=== PATIENT | male | born 1950 | race Caucasian/White ===

== ENCOUNTER 2018-05-18 14:27 | Emergency (ER) | payer MEDICARE, SELFPAY ==
[2018-05-18 14:29] VITALS: BP 171/87; PULSE 76; RESP 20; TEMP 36.2; O2SAT 98; BMI 29.9
--- NOTE | 2018-05-18 14:35 | ED_ITS ---
HPI - Abdominal Pain General Chief Complaint: Abdominal Pain Stated Complaint: abd pain Time Seen by Provider: 05/18/18 14:35 Source: patient Mode of arrival: ambulatory Limitations: no limitations History of Present Illness HPI narrative: 68-year-old male here for evaluation of right-sided abdominal pain. He states that has been going on for the past several days it has been worsening during that time. Does have a history of ulcerative colitis however he states this is different from that type of pain. No blood in the stool. His last bowel movement was yesterday. States that his bowel movements do not change his symptoms at all. No urinary symptoms. He does have a history of kidney stones but this feels different. Some nausea but no vomiting. Had a hernia surgery as a small child but no other abdominal surgeries since then. Related Data Home Medications Medication Instructions Recorded Confirmed aspirin [Aspir-81] 81 mg PO DAILY 05/18/18 05/18/18 carvedilol 6.25 mg PO BID 05/18/18 05/18/18 clopidogrel 75 mg PO DAILY 05/18/18 05/18/18 lisinopril 10 mg PO BID 05/18/18 05/18/18 nitroglycerin 0.4 mg SUBLINGUAL Q5-15M PRN 05/18/18 05/18/18 omeprazole 20 mg PO BID 05/18/18 05/18/18 simvastatin 80 mg PO QPM 05/18/18 05/18/18 Previous Rx's Medication Instructions Recorded hydrocodone-acetaminophen [[place]] 1 tab PO Q4-6H PRN #10 tab 05/18/18 levofloxacin [Levaquin] 750 mg PO DAILY 7 Days #7 tab 05/18/18 metronidazole [Flagyl] 500 mg PO BID 7 Days #14 tab 05/18/18 ondansetron 4 mg PO Q6-8H PRN #10 tab 05/18/18 Allergies Allergy/AdvReac Type Severity Reaction Status Date / Time No Known Drug Allergies Allergy Verified 05/18/18 15:50 Review of Systems Constitutional Denies fever(s) Cardiovascular Denies chest pain and Denies dyspnea Respiratory Denies dyspnea Gastrointestinal Gastrointestinal: Reports abdominal pain, Denies melena, Denies change in bowel habits, Denies coffee ground emesis, Denies diarrhea, Reports nausea and Denies vomiting Genitourinary Denies dysuria Musculoskeletal Denies myalgias and Denies arthralgias Integumentary/Breasts Denies lesions and Denies rash Neurologic Denies behavioral changes Psychiatric Denies behavioral changes Hematologic/Lymphatic Comments: Not on anticoagulation PFSH Medical History Coronary artery disease (Acute) Kidney stones (Acute) Ulcerative colitis (Acute) Surgical History H/O hernia repair (Acute) Social History Smoking Status: Former smoker Exam Initial Vital Signs Initial Vital Signs: Vital Signs Temperature 97.2 F L 05/18/18 14:29 Pulse Rate 76 05/18/18 14:29 Respiratory Rate 20 05/18/18 14:29 Blood Pressure 171/87 H 05/18/18 14:29 Pulse Oximetry 98 05/18/18 14:29 Const General: cooperative, comfortable, well developed, well groomed and No acute distress Orientation: alert, awake and oriented x3 HENMT Head: normal to inspection and normocephalic Resp Effort & Inspection: normal respiratory effort Auscultation: clear to auscultation bilaterally Cardio Rate: regular rate Rhythm: regular rhythm Pulses: radial pulses present GI Inspection: non-distended Palpation: soft, No firm and tender (Right-sided abdominal tenderness with mild guarding) Back/Spine/Pelvis Back: No CVA tenderness Skin Lesions: lesions noted Rashes: rash noted Neuro General: alert, awake and oriented x3 Extrem General: normal to inspection and capillary refill normal Psych Appearance: grossly normal and well kempt Course Orders Ordered: ED Orders 05/18/18 14:45 Complete Blood Count AUTO DIFF Stat 05/18/18 15:03 Lactate (Lactic Acid) Stat 05/18/18 15:08 CT abdomen pelvis w con Stat 05/18/18 15:25 Comprehensive Metabolic Panel Stat Lipase Stat 05/18/18 16:28 US abdomen complete Stat Discontinued Medications Sodium Chloride (Normal Saline 0.9%) 1,000 mls @ 1,000 mls/hr IV BOLUS ONE Stop: 05/18/18 16:07 Last Infusion: 05/18/18 17:16 Dose: 0 mls/hr Admin: 05/18/18 15:17 Dose: 1,000 mls/hr Vital Signs - 8 hr 05/18/18 14:29 05/18/18 14:48 05/18/18 17:24 Temperature 97.2 F L Pulse Rate 76 76 70 Respiratory Rate 20 20 16 Blood Pressure 171/87 H Blood Pressure [Left Arm] 193/84 H 165/69 H Pulse Oximetry 98 98 96 05/18/18 18:30 05/18/18 19:55 Temperature Pulse Rate 66 67 Respiratory Rate 16 Blood Pressure Blood Pressure [Left Arm] 170/76 H 157/74 H Pulse Oximetry 95 96 MDM - Abdominal Pain Lab Data Attestation: I reviewed the patient's lab results. Result diagrams: 05/18/18 14:45 05/18/18 15:25 Lab Results 05/18/18 05/18/18 05/18/18 Range/Units 14:45 15:03 15:25 WBC 9.3 (4.5-11.0) X10^3/uL RBC 3.97 L (4.5-5.9) X10^6/uL Hgb 14.7 (13.5-17.5) g/dL Hct 42.0 (41-53) % MCV 105.6 H (80-100) fL MCH 36.9 H (26-34) PG MCHC 34.9 (30-36) % RDW 14.9 H (11.6-14.8) % Plt Count 112 L (150-400) X10^3/uL Neut % (Auto) 70.7 (50-75) % Lymph % (Auto) 16.2 L (25-40) % [place] % (Auto) 8.8 (3-14) % Eos % (Auto) 3.7 (2-4) % Baso % (Auto) 0.6 (0-2) % Neut # (Auto) 6600 (6124-3800) /uL Lymph # (Auto) 1500 (2464-1513) /uL [place] # (Auto) 800 (0-900) /uL Eos # (Auto) 300 (0-450) /uL Baso # (Auto) 100 (0-100) /uL Sodium 136 L (137-145) mmol/L Potassium 4.1 (3.4-5.1) mmol/L Chloride 102 (98-107) mmol/L Carbon Dioxide 24 (22-32) mmol/L BUN 16 (9-20) mg/dL Creatinine 0.60 L (0.66-1.25) mg/dL Estimated GFR > 60.0 (>60) mL/min BUN/Creatinine Ratio 26.7 H (6-22) Glucose 80 (80-110) mg/dL Lactate 0.7 (0.7-2.1) mmol/L Calcium 9.1 (8.4-10.2) mg/dL Total Bilirubin 0.7 (0.2-1.3) mg/dL AST 89 H (17-59) IU/L ALT 72 (21-72) IU/L Alkaline Phosphatase 140 H (38-126) U/L Total Protein 7.5 (6.3-8.2) g/dL Albumin 4.3 (3.5-5.0) g/dL Globulin 3.2 (1.7-4.1) g/dL Albumin/Globulin Ratio 1.3 (1.0-2.8) Lipase 72 (23-300) U/L Point of care testing: Urine Dip Bedside Urine Glucose Negative Bedside Urine Bilirubin - Negative Bedside Urine Ketone - Negative Urine Specific [place] 1.030 Bedside Urine Occult Blood - Negative Bedside Urine pH 6.0 Bedside Urine Protein - Negative Bedside Urine Urobilinogen - Negative Bedside Urine Nitrite - Negative Bedside Urine Leukocytes - Negative Esterase Imaging Data CT scan - abdomen: Radiologist's impression: [place] [address] CT Scan Report Signed Patient: Vlaentin Solitario JMR#: [id number] : [id number]:[id number] Age/Sex: 68 / MDate of Service: 05/18/18 Loc: ED Accession Number: [id number] Procedure: CT abdomen pelvis w con Ordering Provider: Thierry Vega D.O. PROCEDURE: CT ABDOMEN PELVIS W CON INDICATIONS: Right-sided abdominal pain TECHNIQUE: After the administration of intravenous contrast, 5 mm thick sections acquired from the diaphragm to the symphysis. 5 mm coronal and sagittal reformats were acquired. For radiation dose reduction, the following was used: automated exposure control, adjustment of mA and/or kV according to patient size. COMPARISON: [facility], CT, CT-IVP, 03/08/2007, 9:49. FINDINGS: Image quality: Excellent. ABDOMEN: Lung bases: Scarring within the right anterior lung base. Lung bases are otherwise clear. Heart size is normal. Solid organs: Liver is enlarged and demonstrates diffusely decreased density, indicating fatty infiltration. Hepatic contour is nodular. Gallbladder is contracted and demonstrates calculi within its lumen. Biliary system is non dilated. Pancreas enhances normally. Spleen is normal in size and enhancement. No adrenal nodules. Kidneys demonstrate normal size and enhancement, without hydronephrosis. Peritoneum and bowel: Stomach is nondistended. Multiple mildly distended and fecalized small bowel loops are present. Terminal ileum is mildly thickened. There is fatty hypertrophy of the cecal joshua. Colon is nondistended. Appendix is normal. No free fluid or air. Nodes and vessels: No retroperitoneal or mesenteric adenopathy by size criteria. IVC is normal in caliber. There is a distal infrarenal abdominal aortic aneurysm measuring 43 mm short axis. Bilateral common iliac artery aneurysms are present, measuring 19 mm on the right, and 22 mm on the left. Mildly prominent recanalized umbilical vein is present. Small caliber portosystemic venous collaterals are present. Miscellaneous: No ventral hernias. PELVIS: Genitourinary: Bladder wall thickness is normal. Miscellaneous: No inguinal hernias or adenopathy. Bones: No suspicious bony lesions. No vertebral body compression fractures. IMPRESSION: 1. No acute process. 2. Cirrhosis and portal hypertension. 3. Aortoiliac aneurysms. 4. Fatty hypertrophy of the cecal wall, suggestive of chronic inflammation. 5. Mildly distended and fecalized small bowel loops, suggestive of chronic ileus /partial obstruction. Additionally, there is thickening of the terminal ileum. Findings could indicate inflammatory bowel disease of disease i.e., Crohn's disease). 6. Normal appendix. Dictated by: Dominga Woodruff M.D. on 05/18/2018 at 16:08 US - abdomen: Radiologist's impression: PROCEDURE: US ABDOMEN COMPLETE INDICATIONS: Eval for GB and AAA TECHNIQUE: Real-time scanning was performed of the abdominal and retroperitoneal organs, with image documentation. COMPARISON: [facility], CT, CT ABDOMEN PELVIS W CON, 05/18/2018, 15:49. FINDINGS: Liver: Liver is normal in size and demonstrates diffusely echotexture. Gallbladder: There are gallstones. Pulmonary semicontracted. There is gall bladder wall thickening measuring 5 mm. No pericholecystic fluid or sonographic Wright sign. Biliary ducts: Intrahepatic bile ducts are non-dilated. Extrahepatic bile duct caliber measures 5 mm. Normal is 6-7 mm or less in diameter, or 10 mm or less post-cholecystectomy. Pancreas: Obscured by overlying bowel gas. Spleen: Spleen is enlarged measuring 14.7 cm. Kidneys: Kidneys are normal in size and echotexture. Right kidney measures 11.3 cm long; left kidney measures 12.1 cm long. No hydronephrosis or nephrolithiasis. No solid masses. Aorta: Obscured by overlying bowel gas. Iliacs: Proximal common iliac arteries are obscured by overlying bowel gas. IVC: Intrahepatic inferior vena cava is markedly dressed. Miscellaneous: No free abdominal fluid. IMPRESSION: 1. Cholelithiasis. There is gallbladder wall thickening suspicious for acute cholecystitis. 2. Diffusely increased hepatic echotexture. This finding is most likely secondary to hepatic fatty infiltration although other hepatocellular disease may have a similar appearance. Recommend clinical correlation. 3. Splenomegaly. 4. Aorta is not visualized. Cannot evaluate abdominal aortic aneurysm. 5. Pancreas, , iliac arteries and IVC are not visualized. Dictated by: Dunia Martinez M.D. on 05/18/2018 at 17:58 Approved by: Dunia Martinez M.D. on 05/18/2018 at 18:01 [facility] Narrative Medical decision making narrative: Patient does have a relatively benign abdominal exam. CT scan does show some abnormalities as well as the right upper quadrant ultrasound. I discussed the case with Dr. Montoya with General surgery who states that he would probably be better off evaluated by a tertiary care facility given his other comorbidities. I discussed the case with GIBRAN Rodriguez with [facility] who stated that because he is on Plavix they would not operate on him for the next 7 days. She recommended stopping the Plavix starting him on antibiotics and having the patient be followed up as an outpatient. She also discussed this with the attending surgeon who agrees. I contacted Dr. Zhong who is the on-call physician for the patient's cardiology group who stated that the patient can stop the Plavix. Will send home with Levaquin and Flagyl and also nausea and pain medication. The patient was given the phone numbers for follow-up. He is instructed that on Monday he needed to contact his primary doctor. He is given return precautions. He expressed understanding and agreement with plan. Discharge Plan Departure Patient Disposition: Home Clinical Impression: Cholelithiasis, Cirrhosis, Abdominal aortic aneurysm Instructions: Aortic Aneurysm, DI for Gallstones Activity Restrictions/Additional Instructions: Take the antibiotics as directed. Use the nausea medication and pain medication as needed. On Monday you need to talk with your primary care doctor regarding your presenting symptoms today. You also need to discuss with him the other findings to include the cirrhosis and also the abdominal aortic aneurysm. Also on Monday the surgery group at [facility] would like you to call Dr. Cardoso at [phone]. Before then if your symptoms worsen or change please return to the emergency department. Also stop your Plavix/ clopidogrel in preparation for surgery. Prescriptions: New hydrocodone-acetaminophen [[place]] 5-325 mg tablet 1 tab PO Q4-6H PRN (Reason: pain) Qty: 10 RF: 0 metronidazole [Flagyl] 500 mg tablet 500 mg PO BID 7 Days Qty: 14 RF: 0 levofloxacin [Levaquin] 750 mg tablet 750 mg PO DAILY 7 Days Qty: 7 RF: 0 ondansetron 4 mg tablet,disintegrating 4 mg PO Q6-8H PRN (Reason: nausea and vomiting) Qty: 10 RF: 0 No Action simvastatin 80 mg Tablet 80 mg PO QPM RF: 0 lisinopril 10 mg Tablet 10 mg PO BID RF: 0 clopidogrel 75 mg Tablet 75 mg PO DAILY RF: 0 carvedilol 6.25 mg Tablet 6.25 mg PO BID RF: 0 omeprazole 20 mg Capsule,Delayed Release(Dr/Ec) 20 mg PO BID RF: 0 nitroglycerin 0.4 mg Tablet, Sublingual 0.4 mg SUBLINGUAL Q5-15M PRN (Reason: Chest Pain) RF: 0 aspirin [Aspir-81] 81 mg Tablet,Delayed Release (Dr/Ec) 81 mg PO DAILY RF: 0
[2018-05-18 14:48] VITALS: BP 193/84; PULSE 76; RESP 20; O2SAT 98
[2018-05-18 14:55] LABS: Add Manual Diff / Slide Review NO; Basophils Absolute Auto 100 /uL (0-100); Basophils Percent Auto 0.6 % (0-2); Eosinophils Absolute Auto 300 /uL (0-450); Eosinophils Percent Auto 3.7 % (2-4); Hemoglobin 14.7 g/dL (13.5-17.5); Lymphocytes Absolute Auto 1500 /uL (1100-4500); Lymphocytes Percent Auto 16.2 % (25-40); Mean Corpuscular HGB Conc 34.9 % (30-36); Mean Corpuscular Hemoglobin 36.9 PG (26-34); Mean Corpuscular Volume 105.6 fL (80-100); Monocytes Absolute Auto 800 /uL (0-900); Monocytes Percent Auto 8.8 % (3-14); Neutrophils Absolute Auto 6600 /uL (1500-7000); Neutrophils Percent Auto 70.7 % (50-75); Platelet Count 112 X10^3/uL (150-400); Red Blood Cell Count 3.97 X10^6/uL (4.5-5.9); Red Cell Distribution Width 14.9 % (11.6-14.8); White Blood Cell Count 9.3 X10^3/uL (4.5-11.0)
--- NOTE | 2018-05-18 15:08 | DI.CT.S_ITS ---
PROCEDURE: CT ABDOMEN PELVIS W CON INDICATIONS: Right-sided abdominal pain TECHNIQUE: After the administration of intravenous contrast, 5 mm thick sections acquired from the diaphragm to the symphysis. 5 mm coronal and sagittal reformats were acquired. For radiation dose reduction, the following was used: automated exposure control, adjustment of mA and/or kV according to patient size. COMPARISON: [facility], CT, CT-IVP, 03/08/2007, 9:49. FINDINGS: Image quality: Excellent. ABDOMEN: Lung bases: Scarring within the right anterior lung base. Lung bases are otherwise clear. Heart size is normal. Solid organs: Liver is enlarged and demonstrates diffusely decreased density, indicating fatty infiltration. Hepatic contour is nodular. Gallbladder is contracted and demonstrates calculi within its lumen. Biliary system is non dilated. Pancreas enhances normally. Spleen is normal in size and enhancement. No adrenal nodules. Kidneys demonstrate normal size and enhancement, without hydronephrosis. Peritoneum and bowel: Stomach is nondistended. Multiple mildly distended and fecalized small bowel loops are present. Terminal ileum is mildly thickened. There is fatty hypertrophy of the cecal joshua. Colon is nondistended. Appendix is normal. No free fluid or air. Nodes and vessels: No retroperitoneal or mesenteric adenopathy by size criteria. IVC is normal in caliber. There is a distal infrarenal abdominal aortic aneurysm measuring 43 mm short axis. Bilateral common iliac artery aneurysms are present, measuring 19 mm on the right, and 22 mm on the left. Mildly prominent recanalized umbilical vein is present. Small caliber portosystemic venous collaterals are present. Miscellaneous: No ventral hernias. PELVIS: Genitourinary: Bladder wall thickness is normal. Miscellaneous: No inguinal hernias or adenopathy. Bones: No suspicious bony lesions. No vertebral body compression fractures. IMPRESSION: 1. No acute process. 2. Cirrhosis and portal hypertension. 3. Aortoiliac aneurysms. 4. Fatty hypertrophy of the cecal wall, suggestive of chronic inflammation. 5. Mildly distended and fecalized small bowel loops, suggestive of chronic ileus/partial obstruction. Additionally, there is thickening of the terminal ileum. Findings could indicate inflammatory bowel disease of disease i.e., Crohn's disease). 6. Normal appendix. Dictated by: Dominga Woodruff M.D. on 05/18/2018 at 16:08 Approved by: Dominga Woodruff M.D. on 05/18/2018 at 16:15
[2018-05-18] MEDS: SODIUM CHLORIDE 0.9% 1,000 ML 1000 ML IV (15:17)
[2018-05-18 15:35] LABS: Lactate (Lactic Acid) 0.7 mmol/L (0.7-2.1)
[2018-05-18 15:48] LABS: Alanine Aminotransferase 72 IU/L (21-72); Albumin 4.3 g/dL (3.5-5.0); Albumin Globulin Ratio 1.3 (1.0-2.8); Alkaline Phosphatase 140 U/L (38-126); Aspartate Aminotransferase 89 IU/L (17-59); BUN Creatinine Ratio 26.7 (6-22); Bilirubin Total 0.7 mg/dL (0.2-1.3); Blood Urea Nitrogen 16 mg/dL (9-20); Calcium 9.1 mg/dL (8.4-10.2); Carbon Dioxide 24 mmol/L (22-32); Chloride 102 mmol/L (98-107); Estimated Glomerular Filt Rate > 60.0 mL/min (>60); Globulin 3.2 g/dL (1.7-4.1); Glucose 80 mg/dL (80-110); HEMOLYSIS < 15 (0-50); Lipase 72 U/L (23-300); Potassium 4.1 mmol/L (3.4-5.1); Sodium 136 mmol/L (137-145); Total Protein 7.5 g/dL (6.3-8.2)
--- NOTE | 2018-05-18 16:28 | DI.US.S_ITS ---
PROCEDURE: US ABDOMEN COMPLETE INDICATIONS: Eval for GB and AAA TECHNIQUE: Real-time scanning was performed of the abdominal and retroperitoneal organs, with image documentation. COMPARISON: [facility], CT, CT ABDOMEN PELVIS W CON, 05/18/2018, 15:49. FINDINGS: Liver: Liver is normal in size and demonstrates diffusely echotexture. Gallbladder: There are gallstones. Pulmonary semicontracted. There is gall bladder wall thickening measuring 5 mm. No pericholecystic fluid or sonographic Wright sign. Biliary ducts: Intrahepatic bile ducts are non-dilated. Extrahepatic bile duct caliber measures 5 mm. Normal is 6-7 mm or less in diameter, or 10 mm or less post-cholecystectomy. Pancreas: Obscured by overlying bowel gas. Spleen: Spleen is enlarged measuring 14.7 cm. Kidneys: Kidneys are normal in size and echotexture. Right kidney measures 11.3 cm long; left kidney measures 12.1 cm long. No hydronephrosis or nephrolithiasis. No solid masses. Aorta: Obscured by overlying bowel gas. Iliacs: Proximal common iliac arteries are obscured by overlying bowel gas. IVC: Intrahepatic inferior vena cava is markedly dressed. Miscellaneous: No free abdominal fluid. IMPRESSION: 1. Cholelithiasis. There is gallbladder wall thickening suspicious for acute cholecystitis. 2. Diffusely increased hepatic echotexture. This finding is most likely secondary to hepatic fatty infiltration although other hepatocellular disease may have a similar appearance. Recommend clinical correlation. 3. Splenomegaly. 4. Aorta is not visualized. Cannot evaluate abdominal aortic aneurysm. 5. Pancreas, , iliac arteries and IVC are not visualized. Dictated by: Dunia Martinez M.D. on 05/18/2018 at 17:58 Approved by: Dunia Martinez M.D. on 05/18/2018 at 18:01
[2018-05-18 17:24] VITALS: BP 165/69; PULSE 70; RESP 16; O2SAT 96
[2018-05-18 18:30] VITALS: BP 170/76; PULSE 66; O2SAT 95
[2018-05-18 19:55] VITALS: BP 157/74; PULSE 67; RESP 16; O2SAT 96
--- NOTE | 2018-05-21 10:21 | PC.NURSE ---
pt called because apparetnly he called dr. brewster office and they told him no surgery yet to get all the paperwork in order then will call for appt...pt was upset, i called dr. brewster office and they explained they spoke with him with instructions. will call pt and let him know of plans
== END 2018-05-18 20:22 | disposition home or self-care (01) ==
PROVIDERS: Emergency Provider Emergency Medicine; PCP Family Medicine
DX: K80.20 Calculus of gallbladder without cholecystitis without obstruction (principal); K74.60 Unspecified cirrhosis of liver; I71.4 Abdominal aortic aneurysm, without rupture
CPT/HCPCS: 36415; 36591; 74177; 76700; 80053; 81003; 83605; 83690; 85025; 96360; 96361; 99283; 99285; Q9967